=== PATIENT | male | born 1980 | race Two or more races ===

== ENCOUNTER 2019-03-07 09:16 | Emergency (ER) | payer OTHER ==
[2019-03-07 09:20] VITALS: BP 137/86; PULSE 82; TEMP 98.2; BMI 27.4
[2019-03-07] MEDS ORDERED: KETOROLAC TROMETHAMINE 60 MG/2 ML VIAL IM ONE (10:19)
[2019-03-07] MEDS ORDERED: KETOROLAC TROMETHAMINE 60 MG/2 ML VIAL ONE (10:28)
[2019-03-07] MEDS ORDERED: METHOCARBAMOL 500 MG TABLET ONE (10:28)
[2019-03-07] MEDS ORDERED: METHOCARBAMOL 750 MG TABLET PO ONE (10:30)
--- NOTE | 2019-03-07 11:05 | PDOC ---
History of Present Illness - General Chief Complaint: Back Pain Stated Complaint: BACK PAIN Time Seen by Provider: 03/07/19 09:44 History Source: Patient Exam Limitations: Language Barrier (german ID#[id number]) Past History - Past Medical History Allergies/Adverse Reactions: Allergies Allergy/AdvReac Type Severity Reaction Status Date / Time No Known Allergies Allergy Verified 03/07/19 09:20 Home Medications: Ambulatory Orders Methocarbamol [Robaxin-750] 1,500 mg PO Q6H PRN #24 tablet 03/07/19 COPD: No Other medical history: DENIES - Immunization History Immunization Up to Date: Yes - Psycho Social/Smoking Cessation Hx Smoking History: Never smoked Have you smoked in the past 12 months: No Information on smoking cessation initiated: No Hx Alcohol Use: No Drug/Substance Use Hx: No *Physical Exam - Vital Signs Last Vital Signs Temp Pulse Resp BP Pulse Ox 98.2 F 82 18 137/86 97 03/07/19 09:18 03/07/19 09:18 03/07/19 09:18 03/07/19 09:18 03/07/19 09:18 - Physical Exam General Appearance: No: Apparent Distress Respiratory/Chest: positive: Lungs Clear, Normal Breath Sounds. negative: Respiratory Distress Cardiovascular: positive: Regular Rhythm, Regular Rate, S1, S2. negative: Murmur Gastrointestinal/Abdominal: positive: Soft. negative: Tender Musculoskeletal: positive: Muscle Spasm (along R thoracic paraspinal muscles). negative: CVA Tenderness, Vertebral Tenderness Neurologic: positive: Fully Oriented, Alert, Normal Mood/Affect, Motor Strength 5/5, Other (normal gait) ED Treatment Course - Medications Given in the ED: ED Medications Discontinued Medications Generic Name Dose Route Start Last Admin Trade Name Freq PRN Reason Stop Dose Admin Ketorolac Tromethamine 60 mg 03/07/19 10:19 03/07/19 10:33 Toradol Injection - IM 03/07/19 10:20 60 mg ONCE ONE Administration Methocarbamol 1,500 mg 03/07/19 10:30 03/07/19 10:33 Robaxin - PO 03/07/19 10:31 1,500 mg ONCE ONE Administration Medical Decision Making - Medical Decision Making 39 y/o M with no sig pmh presents with middle back pain, constant in nature, worse with movement of spine and deep breaths. Has not tried taking anything for pain at home. Denies fever, sob, cp, abd pain, n/v, urinary complaints, numbness/tingling/weakness of extremities. Works in [employer]. Denies recent trauma/heavy lifting. +muscle spasms/tightness on exam Likely MSK pain Given Toradol and Robaxin stable for dc 03/07/19 11:01 Discharge - Discharge Information Problems reviewed: Yes Clinical Impression/Diagnosis: Back muscle spasm Condition: Stable Disposition: HOME - Admission No - Additional Discharge Information Prescriptions: Methocarbamol [Robaxin-750] 1,500 mg PO Q6H PRN #24 tablet PRN Reason: Muscle Spasms Prescription Drug Monitoring Program (I-STOP) results: I-STOP not reviewed - Follow up/Referral - Patient Discharge Instructions Patient Printed Discharge Instructions: DI for Thoracic Back Pain Additional Instructions: Thank you for choosing [facility]. It was a pleasure taking care of you. You may take Motrin 600 mg every 6 hours by mouth as needed for mild to moderate pain. Take Motrin with food. Take Robaxin as needed for muscle spasms. This medication can also make you drowsy so please be cautious with driving or performing heavy physical work. Also recommend warm compresses and epsom salt baths Follow-up with your doctor in 2 days Return to the Emergency Department if your symptoms worsen or persist, you have fever, chest pain, severe abdominal pain, vomiting, weakness of extremities ( arms and/or legs), changes in vision or walking or other concerning symptoms. Mark por elegir el [facility]. Fue un placer cuidar de ti. Puede hitesh Motrin 600 mg cada 6 horas por va oral segn sea necesario para el dolor leve a moderado. [place] Motrin con comida. Adona Robaxin segn sea necesario para los espasmos musculares. Venessa medicamento tambin puede causar somnolencia, as que tenga cuidado al conducir o realizar trabajos fsicos pesados. Alexbin recomendamos compresas tibias y baos de benedicto epsom Seguimiento con grimm mdico en 2 galvan. Regrese al departamento de emergencias si juan sntomas empeoran o persisten, tiene fiebre, dolor en el pecho, dolor abdominal intenso, vmitos, debilidad de las extremidades (brazos y / o piernas), cambios en la visin o al caminar u otros sntomas relacionados. Print Language: YI - Post Discharge Activity
== END 2019-03-07 11:15 | disposition home or self-care (01) ==
LOC: JERFT 09:16
PROC: 3E0233Z Introduction of Anti-inflammatory into Muscle, Percutaneous Approach (ICD-10-PCS; principal; 2019-03-07)
DX: M62.830 Muscle spasm of back (principal)
CPT/HCPCS: 99282-25